=== PATIENT | female | born 1985 | race Caucasian/White ===

== ENCOUNTER 2016-08-23 07:24 | Day surgery (SDC) | payer MEDICAID ==
[~2016-08-23] VITALS: Ht 170.2 cm; Wt 112.3 kg
[2016-08-23] VITALS (7 sets, daily range): BP systolic 115–146; BP diastolic 74–90; Ht 170.2 cm; Wt 112.3 kg
[~2016-08-23 07:24] MED LIST: HYDROCODON-ACE1 EAC7 PO; LEXAPRO20 MG PO; SEROQUEL XR150 MG PO
[2016-08-23 08:00] LABS: BASOPHILS 0.3 % (0.0-2.0); EOSINOPHILS 1.2 % (0-7); HEMATOCRIT 41.4 % (36.0-48.0); HEMOGLOBIN 13.6 g/dL (12-16); IMMATURE GRANULOCYTES 0.3 % (0-5); LYMPHOCYTES 25.9 % (15-50); MCH 27.9 pg (26.0-34.0); MCHC 32.9 g/dL (31.0-37.0); MEAN PLATELET VOLUME 9.1 fL (7.4-10.4); MONOCYTES 4.9 % (2-11); NEUTROPHILS 67.4 % (40-80); PLATELET COUNT 258 10x3/uL (130-400); RBC 4.87 10x6/uL (4.00-5.40); RDW 13.7 % (11.5-14.5); WBC 11.3 10x3/uL (4.8-10.8)
[2016-08-23 08:08] LABS: APPEARANCE HAZY (CLEAR); BACTERIA MODERATE /hpf (NONE SEEN); BILIRUBIN NEGATIVE (NEGATIVE); COLOR YELLOW (YELLOW); GLUCOSE NEGATIVE (NEGATIVE); KETONE NEGATIVE (NEGATIVE); LEUKOCYTE ESTERASE NEGATIVE (NEGATIVE); NITRITE NEGATIVE (NEGATIVE); PROTEIN NEGATIVE (NEGATIVE); RED CELLS - URINE 0-5 /hpf (0-5); UROBILINOGEN NORMAL (NORMAL); WHITE CELLS - URINE 0-5 /hpf (0-5)
[2016-08-23 08:17] LABS: HCG SERUM NEGATIVE (NEGATIVE)
[2016-08-23 08:25] LABS: ALBUMIN 3.5 g/dL (3.4-5.0); ALKALINE PHOSPHATASE 113 U/L (46-116); ALT (SGPT) 29 U/L (10-68); CALC OSMOLALITY 278 mosm/kg (275-300); CALCIUM 8.8 mg/dL (8.5-10.1); CARBON DIOXIDE 27.3 mmol/L (21.0-32.0); CHLORIDE - SERUM 103 mmol/L (98-107); CREATININE - SERUM 0.9 mg/dL (0.6-1.3); GLUCOSE 109 mg/dL (74-106); LIPASE 145 U/L (73-393); POTASSIUM - SERUM 3.5 mmol/L (3.5-5.1); PROTEIN - SERUM 7.4 g/dL (6.4-8.2); SODIUM 140 mmol/L (136-145); UREA NITROGEN 9 mg/dL (7-18); eGFR NON AFRICAN AMERICAN 78 mL/min (90-120)
--- NOTE | 2016-08-23 12:05 | HP ---
PATIENT: LILA TAYLOR MEDICAL RECORD: [id number] ACCOUNT: [id number] LOCATION:[facility] : 87 ADMISSION DATE: 08/23/16 HISTORY AND PHYSICAL EXAMINATION DATE OF ADMISSION: 08/23/2016 ADMITTING PHYSICIAN: Lavinia Malcolm MD CHIEF COMPLAINT: Abdominal pain. HISTORY OF PRESENT ILLNESS: A 30-year-old female who woke up from sleep at approximately 4:30 this morning with acute onset of stabbing lower abdominal pain. The patient says the pain was 8/10. It was constant and migrated to the right lower quadrant, associated with nausea, vomiting and subjective fevers as well as dysuria. She denies any hematuria, hematochezia or melena. She denies any hematemesis. The patient came to ER and had appendicitis on CT of the abdomen and pelvis. PAST MEDICAL HISTORY: Depression and obesity. PAST SURGICAL HISTORY: Cholecystectomy, ankle surgery and breast augmentation. ALLERGIES: DIPHENHYDRAMINE. HOME MEDICATIONS: Seroquel and Zoloft. SOCIAL HISTORY: Nonsmoker. Drinks alcohol socially. She is . She lives at home with her spouse and children. FAMILY HISTORY: No significant family history of cancer or heart disease. REVIEW OF SYSTEMS: A 12-point review of systems was obtained, pertinent positive and negative as per the HPI. PHYSICAL EXAMINATION: VITAL SIGNS: Stable. She is afebrile. GENERAL: Well-developed and well-nourished female in moderate distress. EYES: Extraocular muscles intact. EAR, NOSE AND THROAT: Mucous membranes dry. Normal dentition. CARDIOVASCULAR: Normal sinus rhythm. PULMONARY: Clear to auscultation bilaterally. ABDOMEN: Soft, mildly distended. She is tender to palpation in the right lower quadrant with rebound and guarding. Right lower quadrant with localized peritonitis. SKIN: Warm and dry with normal turgor. EXTREMITIES: A neurovascularly intact. No peripheral edema. NEUROLOGIC: She is a GCS of 15 with no focal deficits. LABORATORY DATA: Reviewed. Please see electronic medical record for full list of lab values. IMAGING: CT abdomen and pelvis images personally reviewed. The patient has some pericecal stranding consistent with early appendicitis. HISTORY AND PHYSICAL [id number] LILA TAYLOR IMPRESSION: A 30-year-old female with acute appendicitis. PLAN: 1. Admit to med/surg Dr. Sandeep 2. IV fluid resuscitation. 3. IV narcotics for pain control, IV antibiotics. 4. IV antiemetics. 5. Laparoscopic appendectomy. Risks and benefits of the procedure were discussed with the patient and her spouse. All questions were answered. TRANSINT:[id number] Voice Confirmation ID: [id number] DOCUMENT ID: [id number] LAVINIA MALCOLM MD at 1205 CC: [id number] DICTATION DATE: 08/23/16 1128 FIBER DESIGNER: 08/23/16 1158 [id number] [place] [address]
[2016-08-23] MEDS ORDERED: HYDROCODON-ACE1 EAC7 PO (12:09)
--- NOTE | 2016-08-23 14:00 | NUR ---
FAMILY AT BEDSIDE AT PRESENT N/C AT PRESENT.
--- NOTE | 2016-08-23 14:47 | NUR ---
PT REQ SOMETHING FOR ANIXETY CALLED NEW ORDERS R/N AT PRESENT.
--- NOTE | 2016-08-23 16:27 | NUR ---
QUIET IN ROOM AT BEDSIDE AT PRESENT IV CONT AT 125CC/HR/IVAC/LAC SPACE AT PRESENT.
--- NOTE | 2016-08-23 17:44 | NUR ---
IV DCD CATH IMTACT SITE CLEAN AND DRY RESP EVEN AND UNLABORED AT PRESENT .DISCHARGE INSTRUCTIONS GONE OVER WITH PT DEMONSTRATES UNDERSTANDING AT PRESENT.LEFT VIA W/C AT PRESENT HOSPITAL STAFF AT SIDE.
--- NOTE | 2016-08-23 18:26 | OP ---
PATIENT NAME: LILA TAYLOR MEDICAL RECORD: [id number] :87 LOCATION:[facility] ADMISSION DATE: SURGEON: LAVINIA MALCOLM MD DATE OF OPERATION: 08/23/2016 SURGEON: Lavinia Malcolm MD PREOPERATIVE DIAGNOSIS: Appendicitis. POSTOPERATIVE DIAGNOSIS: Appendicitis. PROCEDURE PERFORMED: Laparoscopic appendectomy. ANESTHESIA: General. COMPLICATIONS: None. Case was clean contaminated. ESTIMATED BLOOD LOSS: 20 cc. SPECIMENS: Appendix. OPERATIVE COURSE: After consent was obtained, the patient was taken to the operating room and placed in the supine position on the operating table. Next, general anesthesia was given via endotracheal intubation after a timeout was taken to confirm the correct patient and procedure. The abdomen was then prepped and draped in typical sterile fashion. Local anesthetic was injected just above the umbilicus. A stab incision was made with an 11-blade scalpel. The abdomen was entered using the 5-mm bladeless optical trocar. Adequate pneumoperitoneum was achieved. The abdominal cavity was inspected. No evidence of bowel injury. No evidence of bleeding. The patient was then placed in the Trendelenburg position. Two additional trocars were placed and the abdomen entered under direct laparoscopic vision. After the administration of local anesthetic, a 12-mm trocar in the left lower quadrant and 5-mm trocar in the suprapubic position. The cecum was mobilized ____ taken down. A short segment of the white line of Toldt, the appendix was identified. The appendix was grossly inflamed. A mesenteric window was created at the base of the appendix using the linear cutting stapler. The appendix was transected with a blue load stapler at the base of the appendix. The mesoappendix was then taken with the fire of the white load stapler. The appendix was then placed in an EndoCatch bag and removed through the 12-mm trocar and sent for permanent pathology. The abdominal cavity was then inspected. No evidence of bowel injury. No evidence of bleeding. The right lower quadrant was copiously irrigated and suctioned. Again, 1 additional look was made. There was no evidence of bowel injury. No evidence of bleeding. At this time, all remaining instruments are removed. The 12-mm trocar site was closed with a 0 Vicryl suture on a Gerry-Chacorta suture passer under direct laparoscopic vision. At this time, the abdomen was desufflated. The remaining trocars were removed. Skin was closed with 4-0 Monocryl, Mastisol and Steri-Strips. At the end of the case, all needle and instrument counts were correct. No complications occurred. The patient was extubated and transferred to the PACU in stable condition. TRANSINT:[id number] Voice Confirmation ID: [id number] DOCUMENT ID: [id number] OPERATIVE REPORT [id number] LILA TAYLOR,LAVINIA Mata MD at 1826 CC: [id number] DICTATION DATE: 08/23/16 1208 WEIGH TANK OPERATOR: 08/23/16 1227 [facility] [place] 08/23/16 [id number] [place] [address]
== END 2016-08-23 17:45 | disposition home or self-care (01) ==
LOC: D.MS 07:24 → D.OPS 07:24 → D.ER 07:24 → EDSTATUS 10:38 → D.MS 11:07 → D.OPS 17:45
PROVIDERS: Emergency Medicine
DX: K35.80 Unspecified acute appendicitis (principal); F17.200 Nicotine dependence, unspecified, uncomplicated; K21.9 Gastro-esophageal reflux disease without esophagitis; E66.9 Obesity, unspecified

== ENCOUNTER 2017-02-25 15:18 | Emergency (ER) | payer MEDICAID ==
[2016-08-23 15:03] VITALS: BMI 38.8
== END 2017-02-25 16:15 | disposition home or self-care (01) ==
LOC: D.ER 15:18
DX: H92.01 Otalgia, right ear (principal); H66.91 Otitis media, unspecified, right ear; J45.909 Unspecified asthma, uncomplicated; F31.89 Other bipolar disorder; K21.9 Gastro-esophageal reflux disease without esophagitis; F17.200 Nicotine dependence, unspecified, uncomplicated; R50.9 Fever, unspecified; R51 Headache

== ENCOUNTER 2017-05-10 20:27 | Emergency (ER) | payer MEDICAID ==
[2016-08-23 15:03] VITALS: BMI 38.8
[2017-05-10 20:54] LABS: BASOPHILS 0.3 % (0-2); EOSINOPHILS 1.4 % (0-7); HEMATOCRIT 41.6 % (36.0-48.0); HEMOGLOBIN 14.1 g/dL (12-16); IMMATURE GRANULOCYTES 0.2 % (0-5); MCH 28.6 pg (26.0-34.0); MCHC 33.9 g/dL (31.0-37.0); MCV 84.4 fL (80.0-100.0); MEAN PLATELET VOLUME 9.2 fL (7.4-10.4); MONOCYTES 3.6 % (2-11); NEUTROPHILS 58.5 % (40-80); RBC 4.93 10x6/uL (4.00-5.40); RDW 13.1 % (11.5-14.5); WBC 11.8 10x3/uL (4.8-10.8)
[2017-05-10 20:57] LABS: PLATELET COUNT 318 10x3/uL (130-400)
[2017-05-10 21:07] LABS: ALBUMIN 3.7 g/dL (3.4-5.0); ALKALINE PHOSPHATASE 169 U/L (46-116); ALT (SGPT) 29 U/L (10-68); AMYLASE - SERUM 64 U/L (25-115); BILIRUBIN - TOTAL 0.18 mg/dL (0.2-1.3); CALC OSMOLALITY 277 mosm/kg (275-300); CALCIUM 9.5 mg/dL (8.5-10.1); CARBON DIOXIDE 22.5 mmol/L (21.0-32.0); CHLORIDE - SERUM 104 mmol/L (98-107); CREATININE - SERUM 0.7 mg/dL (0.6-1.3); GLUCOSE 110 mg/dL (74-106); LIPASE 262 U/L (73-393); POTASSIUM - SERUM 3.6 mmol/L (3.5-5.1); PROTEIN - SERUM 8.2 g/dL (6.4-8.2); SODIUM 140 mmol/L (136-145); UREA NITROGEN 8 mg/dL (7-18); eGFR NON AFRICAN AMERICAN > 90 mL/min (90-120)
[2017-05-10 21:08] LABS: HCG URINE NEGATIVE (NEGATIVE)
[2017-05-10 21:13] LABS: APPEARANCE CLEAR (CLEAR); BILIRUBIN NEGATIVE (NEGATIVE); COLOR YELLOW (YELLOW); GLUCOSE NEGATIVE (NEGATIVE); KETONE NEGATIVE (NEGATIVE); NITRITE NEGATIVE (NEGATIVE); PROTEIN NEGATIVE (NEGATIVE); SPECIFIC GRAVITY 1.015 (1.005-1.020); UROBILINOGEN NORMAL (NORMAL)
[2017-05-10 21:15] LABS: BACTERIA FEW /hpf (NONE SEEN); WHITE CELLS - URINE 0-5 /hpf (0-5)
== END 2017-05-10 21:36 | disposition home or self-care (01) ==
LOC: D.ER 20:27
PROVIDERS: Emergency Medicine
DX: K29.00 Acute gastritis without bleeding (principal); K21.9 Gastro-esophageal reflux disease without esophagitis; F17.200 Nicotine dependence, unspecified, uncomplicated

== ENCOUNTER 2017-08-08 14:36 | Emergency (ER) | payer MEDICAID ==
[2016-08-23 15:03] VITALS: BMI 38.8
== END 2017-08-08 17:00 | disposition home or self-care (01) ==
LOC: D.ER 14:36
DX: J11.1 Influenza due to unidentified influenza virus with other respiratory manifestations (principal); R50.9 Fever, unspecified; R05 Cough; K21.9 Gastro-esophageal reflux disease without esophagitis

== ENCOUNTER 2017-11-21 01:45 | Emergency (ER) | payer BC, MEDICAID ==
[2016-08-23 15:03] VITALS: BMI 38.8
[2017-11-21 02:20] LABS: BASOPHILS 0.1 % (0-2); HEMATOCRIT 43.7 % (36.0-48.0); HEMOGLOBIN 15.2 g/dL (12-16); IMMATURE GRANULOCYTES 0.3 % (0-5); MCH 29.5 pg (26.0-34.0); MCHC 34.8 g/dL (31.0-37.0); MCV 84.7 fL (80.0-100.0); MEAN PLATELET VOLUME 9.4 fL (7.4-10.4); MONOCYTES 5.8 % (2-11); NEUTROPHILS 87.8 % (40-80); RBC 5.16 10x6/uL (4.00-5.40); RDW 13.3 % (11.5-14.5); WBC 14.9 10x3/uL (4.8-10.8)
[2017-11-21 02:22] LABS: PLATELET COUNT 210 10x3/uL (130-400)
[2017-11-21 02:39] LABS: ALBUMIN 3.7 g/dL (3.4-5.0); ALKALINE PHOSPHATASE 123 U/L (46-116); ALT (SGPT) 22 U/L (10-68); BILIRUBIN - TOTAL 0.43 mg/dL (0.2-1.3); CALC OSMOLALITY 273 mosm/kg (275-300); CALCIUM 8.9 mg/dL (8.5-10.1); CARBON DIOXIDE 20.7 mmol/L (21.0-32.0); CHLORIDE - SERUM 103 mmol/L (98-107); CREATININE - SERUM 0.8 mg/dL (0.6-1.3); GLUCOSE 124 mg/dL (74-106); POTASSIUM - SERUM 3.6 mmol/L (3.5-5.1); PROTEIN - SERUM 8.2 g/dL (6.4-8.2); SODIUM 136 mmol/L (136-145); UREA NITROGEN 16 mg/dL (7-18); eGFR NON AFRICAN AMERICAN 89 mL/min (90-120)
[2017-11-21 02:44] LABS: AMYLASE - SERUM 49 U/L (25-115); LIPASE 150 U/L (73-393)
[2017-11-21 02:50] LABS: TROPONIN-I < 0.017 ng/mL (0.000-0.060)
== END 2017-11-21 03:23 | disposition home or self-care (01) ==
LOC: D.ER 01:45
PROVIDERS: Family Medicine
DX: R11.10 Vomiting, unspecified (principal); R19.7 Diarrhea, unspecified; B34.9 Viral infection, unspecified; K21.9 Gastro-esophageal reflux disease without esophagitis

== ENCOUNTER → 2018-04-29 16:30 | Outpatient (CLI) | payer MEDICAID ==
[2016-08-23 15:03] VITALS: BMI 38.8
== END | disposition home or self-care (01) ==
LOC: D.MAMMO 13:30
DX: N63.32 Unspecified lump in axillary tail of the left breast (principal)

== ENCOUNTER 2018-07-19 09:43 | Emergency (ER) | payer MEDICAID ==
[~2018-07-19] VITALS: Ht 170.2 cm; Wt 104.5 kg
[2018-07-19 09:46] VITALS: Ht 170.2 cm; Wt 104.5 kg
[2018-07-19 10:06] LABS: BASOPHILS 0.1 % (0-2); EOSINOPHILS 1.5 % (0-7); HEMATOCRIT 42.3 % (36.0-48.0); HEMOGLOBIN 14.3 g/dL (12-16); IMMATURE GRANULOCYTES 0.2 % (0-5); LYMPHOCYTES 24.5 % (15-50); MCHC 33.8 g/dL (31.0-37.0); MCV 85.8 fL (80.0-100.0); MEAN PLATELET VOLUME 8.8 fL (7.4-10.4); MONOCYTES 8.2 % (2-11); NEUTROPHILS 65.5 % (40-80); PLATELET COUNT 236 10x3/uL (130-400); RBC 4.93 10x6/uL (4.00-5.40); RDW 13.4 % (11.5-14.5); WBC 9.3 10x3/uL (4.8-10.8)
[2018-07-19 10:14] LABS: APPEARANCE SL CLDY (CLEAR); BILIRUBIN NEGATIVE (NEGATIVE); COLOR YELLOW (YELLOW); GLUCOSE NEGATIVE (NEGATIVE); KETONE NEGATIVE (NEGATIVE); NITRITE NEGATIVE (NEGATIVE); PROTEIN NEGATIVE (NEGATIVE); SPECIFIC GRAVITY 1.025 (1.005-1.020); UROBILINOGEN NORMAL (NORMAL)
[2018-07-19 10:16] LABS: BACTERIA MODERATE /hpf (NONE SEEN); EPITHELIAL CELLS 0-5 /hpf (0-5); MUCUS <1+ /lpf (NONE SEEN); RED CELLS - URINE 0-5 /hpf (0-5); WHITE CELLS - URINE RARE /hpf (0-5)
[2018-07-19 10:18] LABS: ALBUMIN 3.1 g/dL (3.4-5.0); ALKALINE PHOSPHATASE 114 U/L (46-116); ALT (SGPT) 57 U/L (10-68); AMYLASE - SERUM 28 U/L (25-115); BILIRUBIN - TOTAL 0.25 mg/dL (0.2-1.3); CALC OSMOLALITY 277 mosm/kg (275-300); CALCIUM 8.3 mg/dL (8.5-10.1); CARBON DIOXIDE 22.9 mmol/L (21.0-32.0); CHLORIDE - SERUM 106 mmol/L (98-107); CREATININE - SERUM 0.8 mg/dL (0.6-1.3); GLUCOSE 94 mg/dL (74-106); LIPASE 131 U/L (73-393); POTASSIUM - SERUM 3.7 mmol/L (3.5-5.1); PROTEIN - SERUM 7.4 g/dL (6.4-8.2); SODIUM 140 mmol/L (136-145); UREA NITROGEN 10 mg/dL (7-18); eGFR NON AFRICAN AMERICAN 89 mL/min (90-120)
[2018-07-19] MEDS ORDERED: FLORASTOR250 MG PO (11:42)
[2018-07-19] MEDS ORDERED: FIBERCON625 MG PO (11:42)
[2018-07-19 11:56] VITALS: BP 125/82
== END 2018-07-19 11:57 | disposition home or self-care (01) ==
LOC: D.ER 09:43
PROVIDERS: Family Medicine
DX: R19.7 Diarrhea, unspecified (principal)

== ENCOUNTER 2019-02-05 21:41 | Emergency (ER) | payer MEDICAID ==
[~2019-02-05] VITALS: Ht 170.2 cm; Wt 100.0 kg
[~2019-02-05 21:41] MED LIST changes: +FIBERCON625 MG PO; +FLORASTOR250 MG PO
[2019-02-05 21:43] VITALS: Ht 170.2 cm; Wt 100.0 kg
[2019-02-05] MEDS ORDERED: ZOLOFT25 MG (21:45)
[2019-02-05 22:25] LABS: HCG URINE NEGATIVE (NEGATIVE)
[2019-02-05] MEDS ORDERED: IMITREX50 MG PO (22:32)
[2019-02-05 23:42] VITALS: BP 128/70
== END 2019-02-05 23:42 | disposition home or self-care (01) ==
LOC: D.ER 21:41
PROVIDERS: Family Medicine
DX: G43.909 Migraine, unspecified, not intractable, without status migrainosus (principal); R11.0 Nausea; K21.9 Gastro-esophageal reflux disease without esophagitis

== ENCOUNTER 2019-04-12 13:12 | Emergency (ER) | payer MEDICAID ==
[~2019-04-12] VITALS: Ht 170.2 cm; Wt 100.2 kg
[~2019-04-12 13:12] MED LIST changes: +IMITREX50 MG PO; +ZOLOFT25 MG
[2019-04-12 13:17] VITALS: Ht 170.2 cm; Wt 100.2 kg
[2019-04-12] MEDS ORDERED: EFFEXOR75 MG PO (13:21)
[2019-04-12] MEDS ORDERED: DEPO INJECTION (13:22)
[2019-04-12 13:42] LABS: BASOPHILS 0.2 % (0-2); EOSINOPHILS 2.2 % (0-7); HEMATOCRIT 41.4 % (36.0-48.0); HEMOGLOBIN 14.7 g/dL (12-16); IMMATURE GRANULOCYTES 0.1 % (0-5); LYMPHOCYTES 25.8 % (15-50); MCH 29.1 pg (26.0-34.0); MCHC 35.5 g/dL (31.0-37.0); MCV 81.8 fL (80.0-100.0); MEAN PLATELET VOLUME 9.4 fL (7.4-10.4); MONOCYTES 3.9 % (2-11); NEUTROPHILS 67.8 % (40-80); PLATELET COUNT 237 10x3/uL (130-400); RBC 5.06 10x6/uL (4.00-5.40); RDW 12.8 % (11.5-14.5); WBC 9.7 10x3/uL (4.8-10.8)
[2019-04-12 14:11] LABS: HCG SERUM NEGATIVE (NEGATIVE)
[2019-04-12 14:32] LABS: APPEARANCE CLEAR (CLEAR); BACTERIA FEW /hpf (NONE SEEN); BILIRUBIN NEGATIVE (NEGATIVE); COLOR YELLOW (YELLOW); EPITHELIAL CELLS RARE /hpf (0-5); GLUCOSE NEGATIVE (NEGATIVE); KETONE NEGATIVE (NEGATIVE); NITRITE NEGATIVE (NEGATIVE); PROTEIN NEGATIVE (NEGATIVE); RED CELLS - URINE OCC /hpf (0-5); SPECIFIC GRAVITY 1.025 (1.005-1.020); UROBILINOGEN NORMAL (NORMAL); WHITE CELLS - URINE NSEEN /hpf (0-5)
[2019-04-12 15:02] LABS: ALBUMIN 3.6 g/dL (3.4-5.0); ALKALINE PHOSPHATASE 119 U/L (46-116); ALT (SGPT) 35 U/L (10-68); AMYLASE - SERUM 46 U/L (25-115); BILIRUBIN - TOTAL 0.29 mg/dL (0.2-1.3); CALC OSMOLALITY 285 mosm/kg (275-300); CALCIUM 8.9 mg/dL (8.5-10.1); CARBON DIOXIDE 21.8 mmol/L (21.0-32.0); CHLORIDE - SERUM 108 mmol/L (98-107); CREATININE - SERUM 0.8 mg/dL (0.6-1.3); GLUCOSE 106 mg/dL (74-106); LIPASE 142 U/L (73-393); POTASSIUM - SERUM 3.8 mmol/L (3.5-5.1); PROTEIN - SERUM 7.4 g/dL (6.4-8.2); SODIUM 144 mmol/L (136-145); UREA NITROGEN 9 mg/dL (7-18); eGFR NON AFRICAN AMERICAN 88 mL/min (90-120)
[2019-04-12 15:03] LABS: TROPONIN-I < 0.017 ng/mL (0.000-0.060)
[2019-04-12] MEDS ORDERED: BENTYL 20 MG TA20 MG PO (16:58)
[2019-04-12] MEDS ORDERED: ZOFRAN ODT4 MG/UDTAB PO (16:58)
[2019-04-12 18:15] VITALS: BP 132/65
== END 2019-04-12 18:17 | disposition home or self-care (01) ==
LOC: D.ER 13:12
PROVIDERS: Family Medicine
DX: R11.2 Nausea with vomiting, unspecified (principal); B34.9 Viral infection, unspecified; K21.9 Gastro-esophageal reflux disease without esophagitis

== ENCOUNTER 2019-06-07 22:20 | Emergency (ER) | payer SELFPAY ==
[~2019-06-07] VITALS: Ht 170.2 cm; Wt 100.0 kg
[~2019-06-07 22:20] MED LIST changes: +BENTYL 20 MG TA20 MG PO; +DEPO INJECTION; +EFFEXOR75 MG PO; +ZOFRAN ODT4 MG/UDTAB PO
[2019-06-07 22:28] VITALS: Ht 170.2 cm; Wt 100.0 kg
[2019-06-07] MEDS ORDERED: EFFEXOR75 MG PO (22:29)
[2019-06-07] MEDS ORDERED: SEROQUEL XR150 MG PO (22:29)
[2019-06-07 23:24] LABS: HEMATOCRIT 35.8 % (36.0-48.0); HEMOGLOBIN 12.5 g/dL (12-16); LYMPHOCYTES 37.3 % (15-50); MCH 28.9 pg (26.0-34.0); MCHC 34.9 g/dL (31.0-37.0); MCV 82.9 fL (80.0-100.0); MEAN PLATELET VOLUME 8.3 fL (7.4-10.4); NEUTROPHILS 57.3 % (40-80); PLATELET COUNT 208 10x3/uL (130-400); RBC 4.32 10x6/uL (4.00-5.40); RDW 13.2 % (11.5-14.5); WBC 7.8 10x3/uL (4.8-10.8)
[2019-06-07 23:31] LABS: CALC OSMOLALITY 285 mosm/kg (275-300); CALCIUM 8.5 mg/dL (8.5-10.1); CARBON DIOXIDE 25.4 mmol/L (21.0-32.0); CHLORIDE - SERUM 107 mmol/L (98-107); CREATININE - SERUM 0.8 mg/dL (0.6-1.3); GLUCOSE 90 mg/dL (74-106); POTASSIUM - SERUM 3.3 mmol/L (3.5-5.1); SODIUM 143 mmol/L (136-145); UREA NITROGEN 14 mg/dL (7-18); eGFR NON AFRICAN AMERICAN 88 mL/min (90-120)
[2019-06-07 23:37] LABS: ALBUMIN 3.7 g/dL (3.4-5.0); ALKALINE PHOSPHATASE 94 U/L (46-116); ALT (SGPT) 26 U/L (10-68); BILIRUBIN - TOTAL 0.38 mg/dL (0.2-1.3); PROTEIN - SERUM 7.6 g/dL (6.4-8.2)
[2019-06-07] MEDS ORDERED: MEDROL DOSE PACK4 MG PO (23:59)
[2019-06-07] MEDS ORDERED: ZPAK PO (23:59)
[2019-06-08 00:53] VITALS: BP 125/75
== END 2019-06-08 00:54 | disposition home or self-care (01) ==
LOC: D.ER 22:20
PROVIDERS: Family Medicine
DX: J40 Bronchitis, not specified as acute or chronic (principal); R05 Cough; Z76.5 Malingerer [conscious simulation]

== ENCOUNTER 2019-12-07 19:59 | Emergency (ER) | payer SELFPAY ==
[~2019-12-07] VITALS: Ht 170.2 cm; Wt 100.0 kg
[~2019-12-07 19:59] MED LIST changes: +MEDROL DOSE PACK4 MG PO; +ZPAK PO
[2019-12-07 20:09] VITALS: Ht 170.2 cm; Wt 100.0 kg
[2019-12-07 20:56] LABS: BILIRUBIN NEGATIVE (NEGATIVE); GLUCOSE NEGATIVE (NEGATIVE); KETONE NEGATIVE (NEGATIVE); NITRITE NEGATIVE (NEGATIVE); UROBILINOGEN NORMAL (NORMAL)
[2019-12-07 20:57] LABS: HCG URINE POSITIVE (NEGATIVE)
[2019-12-07 21:12] LABS: BASOPHILS 0.3 % (0-2); EOSINOPHILS 1.3 % (0-7); HEMATOCRIT 35.8 % (36.0-48.0); HEMOGLOBIN 12.1 g/dL (12-16); IMMATURE GRANULOCYTES 0.3 % (0-5); LYMPHOCYTES 27.1 % (15-50); MCH 29.1 pg (26.0-34.0); MCHC 33.8 g/dL (31.0-37.0); MCV 86.1 fL (80.0-100.0); MEAN PLATELET VOLUME 8.7 fL (7.4-10.4); MONOCYTES 5.8 % (2-11); NEUTROPHILS 65.2 % (40-80); PLATELET COUNT 199 10x3/uL (130-400); RBC 4.16 10x6/uL (4.00-5.40); RDW 13.7 % (11.5-14.5)
[2019-12-07 21:20] LABS: CALC OSMOLALITY 267 mosm/kg (275-300); CALCIUM 8.9 mg/dL (8.5-10.1); CARBON DIOXIDE 24.6 mmol/L (21.0-32.0); CHLORIDE - SERUM 102 mmol/L (98-107); CREATININE - SERUM 0.8 mg/dL (0.6-1.3); GLUCOSE 86 mg/dL (74-106); POTASSIUM - SERUM 3.4 mmol/L (3.5-5.1); SODIUM 135 mmol/L (136-145); UREA NITROGEN 9 mg/dL (7-18); eGFR NON AFRICAN AMERICAN 88 mL/min (90-120)
[2019-12-07 21:47] LABS: ALBUMIN 3.4 g/dL (3.4-5.0); ALKALINE PHOSPHATASE 93 U/L (30-120); ALT (SGPT) 38 U/L (10-68); BILIRUBIN - TOTAL 0.39 mg/dL (0.2-1.3); HCG - QUANTITATIVE (MATERNAL) 43167 mIU/mL; LIPASE 128 U/L (73-393); PROTEIN - SERUM 7.3 g/dL (6.4-8.2)
[2019-12-08 00:42] VITALS: BP 136/81
== END 2019-12-08 00:42 | disposition home or self-care (01) ==
LOC: D.ER 19:59
PROVIDERS: Family Medicine
DX: O20.0 Threatened abortion (principal); O26.851 Spotting complicating pregnancy, first trimester; Z3A.01 Less than 8 weeks gestation of pregnancy; R10.32 Left lower quadrant pain

== ENCOUNTER 2019-12-14 12:20 | Emergency (ER) | payer SELFPAY ==
[~2019-12-14] VITALS: Ht 170.2 cm; Wt 100.0 kg
[2019-12-14 12:27] VITALS: BP 126/80; Ht 170.2 cm; Wt 100.0 kg
[2019-12-14 13:11] LABS: CALC OSMOLALITY 272 mosm/kg (275-300); CALCIUM 9.1 mg/dL (8.5-10.1); CARBON DIOXIDE 25.6 mmol/L (21.0-32.0); CHLORIDE - SERUM 103 mmol/L (98-107); CREATININE - SERUM 0.6 mg/dL (0.6-1.3); GLUCOSE 97 mg/dL (74-106); POTASSIUM - SERUM 3.7 mmol/L (3.5-5.1); SODIUM 137 mmol/L (136-145); UREA NITROGEN 9 mg/dL (7-18); eGFR NON AFRICAN AMERICAN > 90 mL/min (90-120)
[2019-12-14 13:17] LABS: BILIRUBIN NEGATIVE (NEGATIVE); GLUCOSE NEGATIVE (NEGATIVE); KETONE NEGATIVE (NEGATIVE); NITRITE NEGATIVE (NEGATIVE); SPECIFIC GRAVITY 1.025 (1.005-1.020); UROBILINOGEN NORMAL (NORMAL)
[2019-12-14 13:18] LABS: ALBUMIN 3.1 g/dL (3.4-5.0); ALKALINE PHOSPHATASE 111 U/L (30-120); ALT (SGPT) 23 U/L (10-68); BILIRUBIN - TOTAL 0.23 mg/dL (0.2-1.3); PROTEIN - SERUM 7.3 g/dL (6.4-8.2)
[2019-12-14 13:26] LABS: BASOPHILS 0.2 % (0-2); EOSINOPHILS 1.8 % (0-7); HEMATOCRIT 35.5 % (36.0-48.0); IMMATURE GRANULOCYTES 0.2 % (0-5); LYMPHOCYTES 24.9 % (15-50); MCHC 33.8 g/dL (31.0-37.0); MCV 85.7 fL (80.0-100.0); MEAN PLATELET VOLUME 8.7 fL (7.4-10.4); NEUTROPHILS 66.9 % (40-80); PLATELET COUNT 227 10x3/uL (130-400); RBC 4.14 10x6/uL (4.00-5.40); RDW 13.5 % (11.5-14.5); WBC 8.3 10x3/uL (4.8-10.8)
[2019-12-14 13:48] LABS: HCG SERUM POSITIVE (NEGATIVE)
[2019-12-14] MEDS ORDERED: PHENERGAN25 M1 PO (14:55)
== END 2019-12-14 18:51 | disposition home or self-care (01) ==
LOC: D.ER 12:20
PROVIDERS: Family Medicine
DX: O21.1 Hyperemesis gravidarum with metabolic disturbance (principal); Z3A.09 9 weeks gestation of pregnancy